=== PATIENT | male | born 1995 | race Two or more races ===

== ENCOUNTER → 2019-01-29 | Outpatient (CLI) | payer OTHER ==
[~2019-01-29] MED LIST: BUPR-472 PO; DESV50TA9 PO; FLU45SYR17 IM; FLU45SYR25 IM ONLY; FLUT16SP19 NS; METH27ERPT PO; MONT10TA PO; MULT1CAP59 PO; OSE75 PO; OXYC-373 PO; SERT-181 PO; SERT-184 PO; TRI40I IM
[2019-01-29 08:22] LABS: PLATELET COUNT, AUTOMATED 190 K/uL (150-450)
[2019-01-29 09:08] LABS: LDL CHOLESTEROL 159 mg/dl
== END ==
LOC: LAB 08:02
PROVIDERS: ATTEND Nurse Practitioner Primary Care
DX: F41.9 Anxiety disorder, unspecified (principal); E78.00 Pure hypercholesterolemia, unspecified
CPT/HCPCS: 36415; 82040; 82247; 82306; 82310; 82374; 82435; 82465; 82565; 82607; 82947; 83718; 84075; 84132; 84155; 84295; 84450; 84460; 84478; 84520; 85025

== ENCOUNTER → 2019-02-03 | Outpatient (CLI) | payer OTHER | LOC: LAB 10:08 | PROVIDERS: ATTEND Nurse Practitioner Primary Care | DX: Z01.84 Encounter for antibody response examination (principal) | CPT/HCPCS: 36415; 86480; 86706; 86735; 86762; 86765; 87340 ==

== ENCOUNTER → 2019-02-20 | Outpatient (CLI) | payer OTHER | LOC: LAB 07:59 | PROVIDERS: ATTEND Emergency Medicine | DX: L94.0 Localized scleroderma [morphea] (principal); R53.83 Other fatigue; E53.8 Deficiency of other specified B group vitamins | CPT/HCPCS: 36415; 82784; 83516; 84402; 84403; 86038; 86140; 86735 ==